=== PATIENT | female | born 1995 | race Two or more races ===

== ENCOUNTER 2017-12-07 10:53 | Emergency (ER) | payer MEDICAID ==
[~2017-12-07] VITALS: Ht 162.6 cm; Wt 63.5 kg
[2017-12-07 11:12] VITALS: BP 125/78
[2017-12-07] MEDS ORDERED: IBUPROFEN600 MG ORAL (11:35)
[2017-12-07] MEDS ORDERED: BACTRIM DS TAB1 EAC1 ORAL (11:35)
[2017-12-07] MEDS ORDERED: KEFLEX500 MG ORAL (11:35)
[2017-12-07 11:45] VITALS: BP 125/78
--- NOTE | 2017-12-15 14:17 | Emergency Room Report ---
History of Present Illness General Chief Complaint: Skin Rash/Abscess Source: Patient Present Illness HPI Patient presents with complaints of discomfort to both large toes erythema Also has noticed some drainage Patient has recently had her fingers and toenails colored and cut Also had pedicure There was about 5 days after that she noticed increased redness around the toenails Again mainly in both large toes Pain is not worse with walking Denies any ankle pain denies any trauma denies any fevers or chills Allergies: Coded Allergies: MORPHINE (Verified Allergy, Unknown, Shortness of Breath, 12/07/17) Patient History Past Medical History: see triage record Pertinent Family History: none Last Menstrual Period: 11/09/17 Reviewed Nursing Documentation: PMH: Agreed, PSxH: Agreed Nursing Documentation-PMH Past Medical History: No Stated History Review of Systems All Other Systems: negative except mentioned in HPI Physical Exam Sp02 EP Interpretation: reviewed, normal General Appearance: well appearing, no apparent distress Head: normocephalic, atraumatic Eyes: bilateral eye PERRL, bilateral eye EOMI ENT: no angioedema Neck: supple Respiratory: lungs clear Musculoskeletal: other - Patient has discomfort on palpation of both large toes however no limitation on range of motion sensory intact Neurologic: alert, oriented x3 Skin: no rash, other - Erythema involving bilateral large toes mainly on the medial aspect, somewhat raised appearance appears to be early paronychia Lymphatic: no adenopathy Medical Decision Making Diagnostic Impression: Primary Impression: Paronychia ER Course Given appearance the clinical history and the presentation patient is placed on oral antibiotics at this time I did not feel any incision or further intervention was required emergently Patient will have soaking in water and requires close primary physician for potential podiatry referral if needed Status: improved Disposition: HOME, SELF-CARE Condition: Stable Scripts Ibuprofen* (MOTRIN*) 600 Mg Tablet 600 MG ORAL Q8H Y for For Pain, #20 TAB 0 Refills Prov: Jenna Chan DO 12/07/17 Trimethoprim/Sulfamethoxazole 160/800* (BACTRIM DS TABLET*) 1 Each Tablet 1 TAB ORAL Q12H, #20 TAB 0 Refills Prov: Jenna Chan DO 12/07/17 Cephalexin* (KEFLEX*) 500 Mg Capsule 500 MG ORAL Q6H, #40 CAP 0 Refills Prov: Jenna Chan DO 12/07/17 Referrals: NOT CHOSEN IPA/MD,REFERRING (PCP) Patient Instructions: Paronychia, [id number] Additional Instructions: Patient is provided with the discharge instructions notified to follow up with primary doctor in the next 2-3 days otherwise return to the er with any worsening symptoms. Please note that this report is being documented using DRAGON technology. This can lead to erroneous entry secondary to incorrect interpretation by the dictating instrument. Jenna Chan DO Dec 15, 2017 14:16
== END 2017-12-07 11:45 | disposition home or self-care (01) ==
LOC: EMR 11:20
DX: L03.032 Cellulitis of left toe (principal); L03.031 Cellulitis of right toe; Z88.6 Allergy status to analgesic agent
CPT/HCPCS: 99284